=== PATIENT | female | born 1960 ===

== ENCOUNTER 2023-12-28 13:23 | Outpatient (CLI) | payer OTHER ==
[2023-12-28 13:55] LABS: CREATININE 0.6 mg/dL (0.6-1.3)
[2023-12-28] MEDS: iohexoL-300 100 ML VIAL IVP ONE (14:48)
--- NOTE | 2023-12-28 15:38 | CT Report ---
PROCEDURE: IVP INDICATIONS: HEMATURIA CONTRAST: Omni 300 150ml TECHNIQUE: A [address] of the abdomen and pelvis was performed. Non-contrast and contrast images were recorded and evaluated at appropriate window settings. Images were recorded and evaluated at appropriate windo w settings. Reformats: coronal and sagittal. For radiation dose reduction, the following was used: au tomated exposure control, adjustment of convex left scoliosis. 3 interval casting with improved align ment at the tibia and fibula fractures. MA and/or kV according to patient size. COMPARISON: None. FINDINGS: Image quality: Diagnostic. Urinary system: Both kidneys are normal in size. No hydronephrosis or nephrolithiasis on pre-contras t images. No solid masses or complex cysts which require follow up. The opacified renal calyces and ureters appear normal, without filling defect. Bladder wall thickness is normal, accounting for unde rdistention. No calcified bladder stones. No filling defect within the opacified bladder. OTHER Lower chest: Dependent atelectasis. Bilateral lower lobe linear atelectasis/scar. Right lower lobe luz bpleural solid pulmonary nodule measuring 3 mm (05/19). Cardiomegaly. Moderate hiatal hernia. Liver: No solid mass. Gallbladder and biliary tree: Cholelithiasis without acute cholecystitis Spleen: No splenomegaly. Pancreas: No pancreatic ductal dilation. Adrenals: No adrenal nodule. Stomach, bowel and peritoneum: No bowel distension. No pathologic free fluid. Abdominal Lymph nodes: No central or retroperitoneal adenopathy. Vessels: Unremarkable. Reproductive organs: Probable large anterior subserosal partially calcified fibroid measuring 6.1 x 6 cm () with mass effect on the bladder. Pelvic Lymph nodes: Unremarkable. Bones: No aggressive osseous abnormality. No acute fractures. Mild multilevel degenerative changes of the spine. Other: Tiny fat-containing umbilical hernia. IMPRESSION: 1.No hydronephrosis, nephrolithiasis or suspicious filling defect in the collecting system or bladder . 2.12 probable large anterior subserosal partially calcified fibroid measuring 6.1 x 6 cm with mass ef fect on the bladder. Recommend a pelvic ultrasound for further evaluation. 3.Cardiomegaly. 4.Right lower lobe subpleural solid pulmonary nodule measuring 3 mm. Per Fleischner guidelines, if pa tient is low risk, no additional follow-up needed. If patient is high risk, consider repeat CT chest in 12 months. Reviewed by: Chente Danielson MD on 12/28/2023 3:37 PM PDT Approved by: Chente Danielson MD on 12/28/2023 3:37 PM PDT Station ID: [id number]
== END 2023-12-28 13:24 | disposition home or self-care (01) ==
LOC: LAB 13:23
PROVIDERS: ATTEND Physician Assistant Medical
DX: R31.29 Other microscopic hematuria (principal); Z87.891 Personal history of nicotine dependence; D25.2 Subserosal leiomyoma of uterus; I51.7 Cardiomegaly; R91.1 Solitary pulmonary nodule
CPT/HCPCS: 36415; 82565; 84520